=== PATIENT | female | born 1950 | race Caucasian/White ===

== ENCOUNTER → 2017-06-07 | Outpatient (CLI) | payer OTHER ==
--- NOTE | 2017-06-07 11:20 | REPMRS ---
Patient History The patient states she had a clinical breast exam in 05/2017. Patient is postmenopausal and had first child at age 34. Family history of unknown cancer in maternal grandmother. Digital Woman Screen Mammo: June 07, 2017 - Exam #: [id number] Bilateral CC and MLO view(s) were taken. Technologist: Lisa Sam, Technologist Prior study comparison: April 13, 2016, digital woman screen mammo performed at [facility] to [facility]. April 02, 2015, digital woman screen mammo performed at [facility] to [facility]. FINDINGS: There are scattered fibroglandular densities. There has been no change in the appearance of the mammogram from the prior studies. There is a mild amount of residual fibroglandular tissue which is fairly symmetric. There is no interval development of dominant mass, architectural distortion, or clustered microcalcification suggestive of malignancy. ASSESSMENT: BI-RADS/ACR category 1 mammogram. Negative. Recommendation Routine screening mammogram in 1 year (for women over age 40). This mammogram was interpreted with the aid of an FDA-approved computer-aided dectection system. Electronically Signed By: Pee Preston MD 06/07/17 [id number]
== END ==
LOC: M WHC 09:33
PROVIDERS: ATTEND Nurse Practitioner Family
DX: Z12.31 Encounter for screening mammogram for malignant neoplasm of breast (principal)

== ENCOUNTER → 2018-06-14 | Outpatient (REF) | payer MEDICARE, OTHER | LOC: M SFHCWAGY 13:48 | DX: Z12.4 Encounter for screening for malignant neoplasm of cervix (principal); N95.2 Postmenopausal atrophic vaginitis | CPT/HCPCS: G0123 ==

== ENCOUNTER → 2018-06-14 | Outpatient (CLI) | payer MEDICARE, OTHER | LOC: M WHC 13:31 | DX: Z12.31 Encounter for screening mammogram for malignant neoplasm of breast (principal); Z78.0 Asymptomatic menopausal state; Z12.4 Encounter for screening for malignant neoplasm of cervix; N95.2 Postmenopausal atrophic vaginitis; Z12.12 Encounter for screening for malignant neoplasm of rectum | CPT/HCPCS: 77067; G0123 ==

== ENCOUNTER → 2019-08-09 | Outpatient (CLI) | payer MEDICARE, OTHER ==
--- NOTE | 2019-08-09 16:13 | REPMRS ---
Patient History The patient states she had a clinical breast exam in 2018. Family history of unknown cancer in maternal grandmother. No Hormone Replacement Therapy Digital Woman Screen Mammo: August 09, 2019 - Exam #: [id number] Bilateral CC and MLO view(s) were taken. Technologist: Alessandra Styles, Technologist Prior study comparison: June 14, 2018, bilateral digital woman screen mammo performed at [facility]. June 07, 2017, digital woman screen mammo performed at [facility]. April 13, 2016, digital woman screen mammo performed at [facility]. FINDINGS: There are scattered fibroglandular densities. There is a skin tag projecting inferiorly on the left and medially. This is unchanged. There has been no change in the appearance of the mammogram from the prior studies. There is a mild amount of scattered fibroglandular density which is fairly symmetric. There is no interval development of dominant mass, architectural distortion, or grouped microcalcification suggestive of malignancy. 3-D tomosynthesis shows no additional findings. Assessment: BI-RADS/ACR category 2 mammogram. Benign Findings. Recommendation Routine screening mammogram of both breasts in 1 year (for women over age 40). This patient's Lifetime Breast Cancer Risk is estimated at 9.2 %. This mammogram was interpreted with the aid of an FDA-approved computer-aided dectection system. Electronically Signed By: Rohit Britt MD 08/09/19 [id number]
== END ==
LOC: M WHC 13:39
PROVIDERS: ATTEND Nurse Practitioner Family
DX: Z12.31 Encounter for screening mammogram for malignant neoplasm of breast (principal)
CPT/HCPCS: 77063; 77067; G0463

== ENCOUNTER → 2020-09-05 | Outpatient (CLI) | payer MEDICARE, OTHER ==
--- NOTE | 2020-09-05 15:50 | REPMRS ---
Patient History The patient states she had a clinical breast exam in August 2020. Family history of unknown cancer in maternal grandmother. No Hormone Replacement Therapy 3D TOMOSYNTHESIS WAS PERFORMED. The Rebecca Koo lifetime risk for breast cancer is 8.2%. Volpara breast density b. Digital Woman Screen Mammo: September 05, 2020 - Exam #: [id number] Bilateral CC and MLO view(s) were taken. Technologist: Emily Reeves, Technologist Prior study comparison: August 09, 2019, bilateral digital woman screen mammo performed at [facility]. June 14, 2018, bilateral digital woman screen mammo performed at [facility]. FINDINGS: There are scattered fibroglandular densities. There has been no change in the appearance of the mammogram from the prior studies. There is a mild amount of residual fibroglandular tissue which is fairly symmetric. There is no interval development of dominant mass, architectural distortion, or clustered microcalcification suggestive of malignancy. Assessment: BI-RADS/ACR category 1 mammogram. Negative Mammogram. Recommendation Routine screening mammogram in 1 year (for women over age 40). This mammogram was interpreted with the aid of an FDA-approved computer-aided dectection system. Electronically Signed By: Pee Preston MD 09/05/20 [id number]
== END ==
LOC: M WHC 14:23
PROVIDERS: ATTEND Nurse Practitioner Family
DX: Z01.419 Encounter for gynecological examination (general) (routine) without abnormal findings (principal); Z12.31 Encounter for screening mammogram for malignant neoplasm of breast
CPT/HCPCS: 77063; 77067; G0101

== ENCOUNTER → 2020-12-02 | Outpatient (CLI) | payer MEDICARE, OTHER ==
--- NOTE | 2020-12-02 16:26 | REP ---
INDICATION: DYSPNEA, UNSPECIFIED. COMPARISON: 04/17/2009 TECHNIQUE: Two views FINDINGS: The superior mediastinal structures are midline. The cardiac silhouette is unremarkable in size, shape, and position. The diaphragmatic surfaces of the lungs are regular, and the costophrenic angles are clear. The pulmonary ramon are clear. The imaged osseous structures are intact. IMPRESSION: There is no acute cardiopulmonary disease. <Electronically signed by Tom Van > 12/02/20 [id number]
== END ==
LOC: M RAD 15:08
PROVIDERS: ATTEND Nurse Practitioner Family
DX: R06.00 Dyspnea, unspecified (principal)

== ENCOUNTER → 2021-03-13 | Outpatient (REF) | payer MEDICARE, OTHER | LOC: M LAB REF 17:10 | PROVIDERS: ATTEND Nurse Practitioner Family | DX: E83.42 Hypomagnesemia (principal) ==

== ENCOUNTER 2021-04-07 17:33 | Emergency (ER) | payer MEDICARE, OTHER ==
[~2021-04-07] VITALS: Ht 157.5 cm; Wt 92.7 kg
--- NOTE | 2021-04-07 19:19 | REP ---
INDICATION: DYSPNEA/COUGH. COMPARISON: 12/02/2020 FINDINGS: The technique utilized in obtaining the radiograph has magnified the cardiac silhouette and accentuated the interstitial markings. The superior mediastinal structures are midline. The cardiac silhouette is unremarkable in size, shape, and position. The diaphragmatic surfaces of the lungs are regular, and the costophrenic angles are clear. The pulmonary ramon are clear. The imaged osseous structures are intact. IMPRESSION: There is no acute cardiopulmonary disease. <Electronically signed by Tom Van > 04/07/21 [id number]
[2021-04-07 19:31] LABS: HEMATOCRIT 42.2 % (36.0-47.0); HEMOGLOBIN 13.7 g/dl (12.0-15.5); MEAN CORPUSCULAR HGB CONC 32.5 g/dl (32.0-36.5); MEAN CORPUSCULAR VOLUME 89.4 fl (80.0-96.0); RED BLOOD COUNT 4.72 10^6/uL (4.00-5.40)
[2021-04-07 20:00] LABS: ALBUMIN 3.7 GM/DL (3.2-5.2); ALT/SGPT 21 U/L (12-78); BILIRUBIN,DIRECT 0.4 MG/DL (0.0-0.2); BILIRUBIN,TOTAL 1.1 MG/DL (0.2-1.0); CK-MB VALUE MASS < 1.0 NG/ML (<3.6); CPK CREATINE PHOSPHOKINASE 42 U/L (26-192); MAGNESIUM LEVEL 1.9 MG/DL (1.8-2.4); MB/CK RELATIVE INDEX 2.38 (< OR =4); NT-PRO BNP 277 PG/ML (<125); THYROXINE (T4) 15.2 UG/DL (4.5-12.0); TOTAL PROTEIN 7.7 GM/DL (6.4-8.2); TROPONIN I < 0.02 NG/ML (< 0.10)
[2021-04-07 20:30] LABS: PLATELET COUNT, AUTOMATED 69 10^3/uL (150-450); WHITE BLOOD COUNT 59.4 10^3/uL (4.0-10.0)
[2021-04-07 21:05] LABS: BLAST CELLS 78 % (0-0); EOSINOPHILS 2 % (0-3); LYMPHOCYTES 14 % (16-44); NEUTROPHILS 2 % (28-66)
[2021-04-07 21:06] LABS: MONOCYTES 3 % (0-5); PLATELET ESTIMATE MARKED DECREASE (NORMAL)
[2021-04-07 21:07] LABS: ANISOCYTOSIS 1+; OVALOCYTES 1+; POIKILOCYTOSIS 1+
--- NOTE | 2021-04-07 21:28 | REPVR ---
PROCEDURE INFORMATION: Exam: US Duplex Lower Extremity Veins, Bilateral Exam date and time: 04/07/2021 9:03 PM Age: 70 years old Clinical indication: Pain; Leg, lower; Bilateral; Additional info: Leg pain, travel history TECHNIQUE: Imaging protocol: Real-time duplex ultrasound of the extremities with 2-D torres scale, color Doppler flow and spectral waveform analysis with image documentation. Complete exam focused on the bilateral lower extremity veins. COMPARISON: No relevant prior studies available. FINDINGS: Right deep veins: Unremarkable. The common femoral, femoral, popliteal and posterior tibial veins are patent without thrombus. Normal Doppler waveforms. Normal compressibility and/or augmentation response. Right superficial veins: Saphenofemoral junction is patent without thrombus. Left deep veins: Unremarkable. The common femoral, femoral, popliteal and posterior tibial veins are patent without thrombus. Normal Doppler waveforms. Normal compressibility and/or augmentation response. Left superficial veins: Saphenofemoral junction is patent without thrombus. Soft tissues: Unremarkable. IMPRESSION: No sonographic evidence of deep vein thrombosis. Electronically signed by: Qamar Theodore On 04/07/2021 21:27:35 PM
[2021-04-07] MEDS ORDERED: CEFEPIME HCL 2 GM in D5W MINI-BAG PLUS 50 ML IV ONE (22:25)
[2021-04-07] MEDS ORDERED: ISOVUE-370 76% 100ML VIAL As Ordered ONE (23:41)
[2021-04-08] MEDS ORDERED: HEPARIN 25,000 UNITS/250 ML D5W BAG (100 UNITS/ML) (J1644 PER 1000UNITS) As Ordered ONE (00:13)
[2021-04-08] MEDS ORDERED: HEPARIN DRIP 25,000 UNITS in IV 1 EA IV SCH (00:15)
[2021-04-08] MEDS ORDERED: HEPARIN SOD (PORCINE) 5000UNITS/ML 1ML VIAL/SYRINGE IV ONE (00:15)
--- NOTE | 2021-04-08 00:18 | REPVR ---
PROCEDURE INFORMATION: Exam: CTA Chest With Contrast Exam date and time: 04/07/2021 7:47 PM Age: 70 years old Clinical indication: Pain; Other: Legs; Additional info: Palpitations, leg pain TECHNIQUE: Imaging protocol: Computed tomographic angiography of the chest with contrast. Axial, coronal and sagittal reformatted images were created and reviewed. 3D rendering (Not supervised by radiologist): MIP and/or 3D reconstructed images were created by the technologist. Radiation optimization: All CT scans at this facility use at least one of these dose optimization techniques: automated exposure control; mA and/or kV adjustment per patient size (includes targeted exams where dose is matched to clinical indication); or iterative reconstruction. Contrast material: ISO; Contrast volume: 75 ml; Contrast route: INTRAVENOUS (IV); COMPARISON: CR PORTABLE CHEST X-RAY 04/07/2021 6:19 PM FINDINGS: Pulmonary arteries: Contrast opacification satisfactory. Linear nonocclusive thrombus in the distal right main pulmonary artery, extending into the right upper lobe lobar and segmental branches. Segmental and subsegmental emboli in the right middle and lower lobes. Small segmental and subsegmental emboli in the left upper lobe and lingula. Aorta: Unremarkable. No aneurysm or dissection. Lungs: Mild linear stranding and groundglass, likely due to atelectasis and/or scarring. No consolidation. No mass. Pleural spaces: Unremarkable. No pneumothorax. No pleural effusion. Heart: Slight leftward bowing of the interventricular septum. No cardiomegaly. No pericardial effusion. Lymph nodes: No pathologically enlarged lymph nodes. Bones/joints: No acute osseous abnormality. Degenerative changes. Soft tissues: Unremarkable. IMPRESSION: 1. Bilateral pulmonary emboli, as described above. 2. Slight leftward bowing of the interventricular septum, raising concern for developing right heart strain. 3. Additional findings, as above. Electronically signed by: Qamar Theodore On 04/08/2021 00:18:10 AM
[2021-04-08 00:30] VITALS: BP 136/62
[2021-04-08 00:47] LABS: INR 1.22; PROTHROMBIN TIME 15.8 SECONDS (12.7-14.5)
[2021-04-08 00:48] LABS: PARTIAL THROMBOPLASTIN TIME 40.4 SECONDS (25.9-37.0)
--- NOTE | 2021-04-08 07:35 | ECGEPIP ---
[facility] - ED Test Date: 2021-04-07 Pat Name: MARIELY VINCENT Department: Room: - Gender: Female Customer Care Agent: silvestre : 1950 Requested By: Domingo Kearns Order Number: [id number] Reading MD: Gregorio Cortez Measurements Intervals [place] Rate: 86 P: 36 MI: 146 QRS: 9 QRSD: 88 T: 36 QT: 378 QTc: 452 Interpretive Statements Normal sinus rhythm Comparison tracing not on file Electronically Signed on 04-08-2021 7:35:13 EDT by Gregorio Cortez
== END 2021-04-08 01:04 | disposition short-term general hospital (02) ==
LOC: M ED 17:33
DX: I10 Essential (primary) hypertension (principal); I26.99 Other pulmonary embolism without acute cor pulmonale; J45.909 Unspecified asthma, uncomplicated; E11.9 Type 2 diabetes mellitus without complications; Z88.0 Allergy status to penicillin
CPT/HCPCS: 71045; 71275; 80047; 80076; 81001; 82550; 82553; 83605; 83735; 83880; 84436; 84443; 84484; 85025; 85049; 85055; 85610; 85730; 87040; 87798; 93005; 93041; 93970; 94760; 96374; 99285; J0692; Q9967